=== PATIENT | male | born 1965 | race Caucasian/White ===

== ENCOUNTER 2021-06-08 15:07 | Emergency (ER) | payer BC ==
[~2021-06-08] VITALS: Ht 167.6 cm; Wt 79.4 kg
[2021-06-08] MEDS ORDERED: AMOXICILLIN500 M2 PO (16:43)
[2021-06-08] MEDS ORDERED: IBUPROFEN600 MG PO (16:43)
== END 2021-06-08 17:15 | disposition home or self-care (01) ==
LOC: ED 15:07
DX: K02.9 Dental caries, unspecified (principal)